=== PATIENT | male | born 1970 | race Caucasian/White ===

== ENCOUNTER 2025-04-04 04:25 | Emergency (ER) | payer OTHER ==
[2025-04-04 05:19] LABS: #Basophils 0.1 thou/uL (0.0-0.2); #Eosinophils 0.1 thou/uL (0.0-0.7); #Lymphocytes 2.3 thou/uL (1.20-3.40); #Monocytes 0.9 thou/uL (0.11-0.59); #Neutrophils 3.3 thou/uL (1.40-6.50); %Basophils 0.9 % (0.0-1.0); %Eosinophils 0.9 % (0.0-10.0); %Lymphocytes 35.0 % (21.0-51.0); %Monocytes 14.1 % (0.0-10.0); %Neutrophils 49.1 % (42.0-75.0); Hematocrit 42.7 % (42.0-52.0); Hemoglobin 14.3 g/dL (14.0-18.0); Mean Corpuscular Hemoglobin 30.0 pg (27.0-31.0); Mean Corpuscular Volume 89.7 fl (78.0-98.0); Platelet Count 364 10x3/uL (130-400); Red Blood Cell (RBC) Count 4.76 mill/uL (4.70-6.10); White Blood Cell (WBC) Count 6.7 10x3/uL (4.8-10.8)
[2025-04-04 05:38] LABS: ALT (SGPT) 33 U/L (Less than 45); AST (SGOT) 33 U/L (11-34); Albumin 3.2 g/dL (3.1-4.5); Alkaline Phosphatase 107 U/L (40-110); Anion Gap 15 mmol/L (10-20); BUN (Urea Nitrogen) 12 mg/dL (8.4-25.7); Bilirubin, Total 0.4 mg/dL (0.3-1.2); Calc. Creatinine Clearance 0 mL/min (70-130); Calcium 9.1 mg/dL (7.8-10.44); Carbon Dioxide 29 mmol/L (22-29); Chloride 98 mmol/L (98-107); Globulin 5.1 g/dL (2.4-3.5); Glucose 86 mg/dL (70-105); Potassium 4.0 mmol/L (3.5-5.1); Sodium 138 mmol/L (136-145); Troponin I Less than 0.010 ng/mL (< 0.028)
[2025-04-04 07:49] LABS: Glucose, Urine (Dipstick) Negative (Negative); Leukocyte Negative (Negative); Protein, Urine (Dipstick) Negative (Neg-Trace); Specific Gravity, Urine 1.015 (1.005-1.030)
[2025-04-04 07:51] LABS: Bacteria/HPF None Seen HPF (None Seen); CAUTI Indications for Culture Dysuria,urgency,freq; RBC/HPF None Seen HPF (0-3); WBC/HPF None Seen HPF (0-3)
[2025-04-04 07:52] LABS: Urine Culture Reflex No No
[2025-04-04 07:58] LABS: Cocaine Metabolite Screen Negative (Negative); THC/Cannabinoid Screen Negative (Negative); Tricyclic Screen Negative (Negative)
[2025-04-04] MEDS ORDERED: Iopamidol 370 76% 100 ML VIAL ONE (09:00)
== END 2025-04-04 10:06 ==
LOC: NAV ERS 04:25
DX: U07.1 COVID-19 (principal); J12.82 Pneumonia due to coronavirus disease 2019; K59.00 Constipation, unspecified; I10 Essential (primary) hypertension; E11.9 Type 2 diabetes mellitus without complications; K21.9 Gastro-esophageal reflux disease without esophagitis; Z79.899 Other long term (current) drug therapy
CPT/HCPCS: 36415; 71046; 71270; 80053; 80306; 81001; 82274; 84443; 84484; 85025; 87426; 93005; J7030; Q9967